=== PATIENT | female | born 1990 | race Caucasian/White ===

== ENCOUNTER 2019-02-10 20:02 | Emergency (ER) | payer BC, OTHER ==
[~2019-02-10] VITALS: Ht 170.2 cm; Wt 61.4 kg
[2019-02-10 20:24] VITALS: BP 120/78
[2019-02-10 20:45] LABS: BASOPHILS % (AUTO) 0.6 % (0-1); EOSINOPHILS # (AUTO) 0.4 X10'3 (0-0.9); EOSINOPHILS % (AUTO) 5.5 % (0-6); HEMOGLOBIN 11.5 g/dl (12.0-16.0); LYMPHOCYTES # (AUTO) 1.6 X10'3 (1.1-4.8); LYMPHOCYTES % (AUTO) 20.4 % (21-51); MEAN CORPUSCULAR HEMOGLOBIN 32.4 PG (27.0-31.0); MEAN CORPUSCULAR VOLUME 92.7 FL (78-98); MEAN PLATELET VOLUME 7.6 FL (7.4-10.4); MONOCYTES # (AUTO) 0.5 X10'3 (0-0.9); NEUTROPHILS # (AUTO) 5.2 X10'3 (1.8-7.7); NEUTROPHILS % (AUTO) 67.5 % (42-75); PLATELET COUNT 218 X10'3 (140-440); RED BLOOD COUNT 3.56 X10'6 (4.20-5.60); WHITE BLOOD COUNT 7.7 X10'3 (4.5-11.0)
[2019-02-10 20:54] LABS: HCG SERUM QL POSITIVE
[2019-02-10 20:56] LABS: ALANINE AMINOTRANSFERASE 27 U/L (12-78); ALBUMIN 4.1 G/DL (3.4-5.0); ALBUMIN/GLOBULIN RATIO 1.5 (1.1-1.5); ALKALINE PHOSPHATASE 32 IU/L (46-116); ANION GAP 7 (8-16); ASPARTATE AMINO TRANSFERASE 10 U/L (10-37); BILIRUBIN,TOTAL 0.2 MG/DL (0.1-1.0); BLOOD UREA NITROGEN 8 MG/DL (7-18); BUN/CREATININE RATIO 12.9 (6.6-38.0); CALCIUM 8.8 MG/DL (8.5-10.1); CHLORIDE 106 MMOL/L (99-107); CREATININE 0.62 MG/DL (0.40-0.90); GLUCOSE 110 MG/DL (70-104); POTASSIUM 3.2 MMOL/L (3.5-5.1); SODIUM 140 MMOL/L (135-145); TOTAL CARBON DIOXIDE 26.6 MMOL/L (24-32); TOTAL PROTEIN 6.9 G/DL (6.4-8.2); eGFR > 90 ML/MIN
[2019-02-10 21:22] LABS: BETA HCG,QUANTITATIVE 2131 mIU/ml
[2019-02-10 22:44] LABS: CLARITY,URINE CLEAR (Clear); COLOR,URINE YELLOW (Yellow); GLUCOSE, URINE NEGATIVE (Neg); KETONES,URINE NEGATIVE (Neg); LEUKOCYTE ESTERASE ,URINE NEGATIVE (Neg); NITRITES, URINE NEGATIVE (Neg); OCCULT BLOOD,URINE MODERATE (Neg); PH,URINE 6.5 (4.8-8.0); PROTEIN,URINE NEGATIVE (Neg); UROBILINOGEN,URINE 0.2 E.U/dL (0.2-1.0)
[2019-02-10 22:49] LABS: BACTERIA,URINE NONE SEEN /HPF (Neg); SQUAMOUS EPITHELIAL CELL,UR FEW /LPF (FEW); UA COLLECTION TYPE CLN CATCH MIDSTREAM; WBC,URINE NONE SEEN /HPF (0-4)
== END 2019-02-10 23:01 | disposition home or self-care (01) ==
LOC: ER 20:02
DX: O03.4 Incomplete spontaneous abortion without complication (principal); R79.1 Abnormal coagulation profile; Z3A.11 11 weeks gestation of pregnancy
CPT/HCPCS: 36415; 80053; 81001; 84145; 84702; 84703; 85025; 85610; 99283

== ENCOUNTER 2025-05-18 14:15 | Emergency (ER) | payer BC ==
[~2025-05-18] VITALS: Ht 170.2 cm; Wt 64.7 kg
[2025-05-18 14:16] VITALS: TEMP 98.7
--- NOTE | 2025-05-18 14:33 | Physician Documentation ---
History of Present Illness ~ Chief Complaint: Flu Symptoms Stated Complaint: NOT FEELING WELL Time Seen by MD: 14:53 Primary Medical Doctor: UNKNOWN HPI Very pleasant 34-year-old female that presents to the emergency department for evaluation of persistent dizziness and vertigo times several days. Patient reports that she has recently been diagnosed with bilateral ear infections and was started on antibiotics for that. Patient reports that she has been on the antibiotics for approximately 4 days but the dizziness and vertigo have persisted. She has also had associated nausea and vomiting with the symptoms. Patient denies taking any medications that have been helpful. Patient denies fever chills but again does report nausea vomiting diarrhea dizziness and vertigo at this time. Patient denies chest pain or headache. Medication Reconciliation Allergies: Coded Allergies: No Known Allergies (Unverified , 05/18/25) Past Medical History Past Medical History: No Pertinent History Past Surgical History: no surgical history Alcohol Use: None Drug Use: none Lives with: Spouse Lives In: Home, Other Review of Systems ROS As stated above in the HPI, otherwise all systems are reviewed and negative. Physical Exam Vital Signs: Temperature: 98.7, Source: Temporal, Heart Rate: 98, Respiratory Rate: 16, BP: 137/85, Pulse Oximetry: 100, Weight: 64.700 Oxygen Flow Rate: 0 General Appearance VITALS: Reviewed and as above. GENERAL: Alert, no apparent distress. HEENT: Normocephalic, atraumatic, PERRL, EOMI, dry mucosa, no erythema RESPIRATORY: Lungs clear, normal breath sounds, no respiratory distress. CHEST: No accessory muscle use, no retractions CV: Regular rate, rhythm, no edema, no murmur, No: JVD GI: Soft, non-tender, bowels sounds present, no rebound, guarding, or rigidity BACK: No CVA tenderness, or swelling MUSCULOSKELETAL No deformities, no edema SKIN: Warm and dry, no rash NEURO: Oriented x4, No motor or sensory deficit PSYCH: Normal mood and affect, no agitation Progress Results/Orders Results/Orders Orders - CARI GREEN * Iv Access / Saline Lock * (05/18/25 14:53) Completed Orders - CARI GREEN Cbc/Diff (05/18/25 14:53) CMP (05/18/25 14:53) Urinalysis, Cult If Indicated (05/18/25 14:53) Hcg, Ur Ql (05/18/25 14:53) Ondansetron Inj. (Zofran 4mg/2ml Vial) (05/18/25 14:55) Meclizine Tablets (Antivert Tablet) (05/18/25 16:35) Medications Received in ER Medications (Trade) Dose Ordered Sig/Priya Route PRN Reason Start Time Stop Time Status Last Admin Dose Admin (Zofran 4mg/2ml vial) 4 mg ONCE ONCE IV 05/18/25 14:55 05/18/25 14:56 DC 05/18/25 14:59 4 MG Vital Signs 05/18/25 14:16 Temp 98.7 Pulse 98 Resp 16 B/P (MAP) 137/85 Pulse Ox 100 O2 Flow Rate 0 Laboratory Tests Test 05/18/25 14:39 05/18/25 16:00 White Blood Count 9.8 Red Blood Count 4.69 Hemoglobin 14.1 Hematocrit 41.9 Mean Corpuscular Volume 89.3 Mean Corpuscular Hemoglobin 30.1 Mean Corpuscular Hemoglobin Concent 33.7 Red Cell Distribution Width 12.5 Platelet Count 304 Mean Platelet Volume 8.3 Neutrophils (%) (Auto) 81.2 H Lymphocytes (%) (Auto) 15.2 L Monocytes (%) (Auto) 2.5 Eosinophils (%) (Auto) 0.7 Basophils (%) (Auto) 0.4 Neutrophils # (Auto) 8.0 H Lymphocytes # (Auto) 1.5 Monocytes # (Auto) 0.2 Eosinophils # (Auto) 0.1 Basophils # (Auto) 0.0 CBC Comment Sodium Level 144 Potassium Level 3.4 L Chloride Level 111 H Carbon Dioxide Level 22.9 L Anion Gap 10 Blood Urea Nitrogen 11 Creatinine 0.85 Estimated GFR/1.73 m2 76 BUN/Creatinine Ratio 12.9 Glucose Level 100 Calcium Level 8.9 Total Bilirubin 0.5 Aspartate Amino Transf (AST/SGOT) 12 Alanine Aminotransferase (ALT/SGPT) 13 Alkaline Phosphatase 55 Total Protein 7.4 Albumin 4.5 Globulin 2.9 Albumin/Globulin Ratio 1.6 H Chemistry Comments Urine Specimen Description Non-specified Urine Color Yellow Urine Clarity Clear Urine pH 6.0 Urine Specific Stanton 1.025 Urine Protein Negative Urine Glucose (UA) Negative Urine Ketones Trace H Urine Occult Blood Negative Urine Nitrite Negative Urine Bilirubin Negative Urine Urobilinogen 0.2 Urine Leukocyte Esterase Negative Urine Culture Indicated Not ind Volume Urine Centrifuged 10 ml Urine HCG, Qualitative Negative Urine Comment Medical Decision Making Additional information obtaine: other Findings Chief Complaint: Persistent dizziness and vertigo History of Present Illness: 34-year-old female presenting to the emergency department with several days of persistent dizziness and vertigo. Patient was recently diagnosed with bilateral ear infections and started on antibiotics four days ago, but vestibular symptoms have persisted despite treatment. Associated symptoms include nausea and vomiting. Patient denies fever, chills, chest pain, or headache. Reports no relief with any medications tried at home. Differential Diagnosis: The differential diagnosis for this patient's presentation was considered using the timing and triggers approach to acute dizziness. Given the persistent nature of symptoms lasting several days, this presentation is most consistent with an acute vestibular syndrome (AVS), defined as continuous dizziness or vertigo lasting longer than 24 hours. Primary considerations included: Vestibular neuritis/labyrinthitis - Most likely given recent bilateral ear infections and persistent symptoms Peripheral vestibular dysfunction secondary to ongoing otologic infection Central causes (posterior circulation stroke) - Less likely given patient age, absence of vascular risk factors documented, and clinical presentation Medication side effects - Considered but less likely Vestibular migraine - Possible but no reported migrainous features Approximately half of emergency department patients with dizziness have general medical conditions, while 33% have peripheral vestibular causes and only 3-6% have serious central causes. In patients with AVS specifically, vestibular neuritis is the most common peripheral cause, while 10-25% are due to posterior circulation stroke. Emergency Department Course: Laboratory diagnostics were unremarkable, which helped exclude metabolic, infectious, and hematologic causes of dizziness. The patient received supportive care including intravenous fluids for dehydration secondary to nausea and vomiting, ondansetron (Zofran) for nausea, and one dose of meclizine with some symptomatic improvement. Physical examination findings were consistent with a peripheral vestibular etiology rather than central pathology. The absence of fever, headache, focal neurological deficits, and the patient's clinical improvement with vestibular suppressant medication support a benign peripheral cause. Assessment and Plan: This patient's presentation is most consistent with vestibular neuritis or labyrinthitis in the setting of bilateral ear infections. Vestibular neuritis is caused by inflammation of the vestibular component of the eighth cranial nerve, thought to be similar to Romero's palsy, and is typically a viral or postviral condition. The persistence of symptoms despite antibiotic treatment for ear infections suggests ongoing vestibular inflammation. Disposition: Discharge home with close outpatient follow-up Discharge Medications: Continue current antibiotics as prescribed for bilateral ear infections Meclizine 25 mg as needed for vertigo (short course) Discharge Instructions: Follow up with primary care provider within 3-5 days for reassessment Consider referral to otolaryngology or neurology if symptoms persist or worsen Vestibular rehabilitation therapy may be beneficial if symptoms do not resolve Return Precautions: Return to the emergency department immediately for: Worsening or severe headache New neurological symptoms (weakness, numbness, vision changes, difficulty speaking) Inability to walk or severe imbalance Persistent vomiting with inability to tolerate oral intake Fever Any other concerning symptoms Medical Decision Making Complexity: Moderate complexity. Multiple diagnostic possibilities were considered in a patient with persistent vestibular symptoms. The evaluation required distinguishing between peripheral and central causes of dizziness, which has significant implications for management and prognosis. The decision to discharge was based on clinical presentation consistent with peripheral vestibular pathology, absence of concerning features for central etiology, improvement with symptomatic treatment, and ability to arrange appropriate outpatient follow-up. Differential Dx:Considerations: Include: CVA, Dehydration, Drug toxicity, Electrolyte imbalance, Influenza, Meningitis, Mycardial infarction, Pneumonia, Pneumonitis, Pulmonary embolus, Pyelonephritis, Respiratory failure, Sepsis, UTI, Viral Syndrome, Other Departure Disposition: 01 HOME / SELF CARE / HOMELESS Impression: Primary Impression: Vestibular neuritis Condition: Stable Discharge Instructions: Labyrinthitis, [id number] Additional Instructions: Your Diagnosis You came to the emergency department with dizziness and vertigo (a spinning sensation) that has lasted several days. You were recently diagnosed with ear infections in both ears and started on antibiotics. Your symptoms are likely related to inflammation in the inner ear from your ear infections, which affects your balance system. Your lab tests came back normal, and your examination suggests this is related to your ear infections rather than a more serious problem with your brain or heart. What You Need to Do at Home Continue your antibiotics exactly as prescribed - even though your dizziness hasn't gone away yet. The antibiotics are treating the infection in your ears, which takes time to fully resolve. Take meclizine for your vertigo symptoms - You received one dose in the emergency department which helped your symptoms. You have been prescribed a short course of meclizine to take at home. Only take this medication for 3-5 days maximum. Taking it longer can actually slow down your body's natural ability to adjust to the vertigo and may cause side effects. Important safety information about meclizine: This medication can make you drowsy - do not drive or operate machinery while taking it Avoid drinking alcohol while taking this medication If you have asthma, glaucoma, or an enlarged prostate, use this medication with caution Rest and take it easy - Avoid sudden head movements when possible. Get up slowly from lying or sitting positions. Stay hydrated - Drink plenty of fluids, especially if you've been vomiting. Follow-Up Care Schedule an appointment with your primary care doctor within 3-5 days. Your doctor may refer you to an ear, nose, and throat specialist (ENT) or recommend vestibular rehabilitation therapy (special exercises) if your symptoms don't improve. Vestibular rehabilitation therapy has been shown to help many patients recover from vertigo, especially when symptoms persist. When to Return to the Emergency Department Immediately Come back to the emergency department right away if you experience any of these symptoms: Severe or worsening headache - especially if it's the worst headache of your life New weakness, numbness, or tingling in your face, arms, or legs Trouble speaking or slurred speech Vision changes - such as double vision, vision loss, or difficulty seeing Difficulty walking or severe imbalance - worse than what you experienced today Persistent vomiting - if you cannot keep down liquids Fever - temperature over 100.4F (38C) Chest pain or shortness of breath Confusion or difficulty staying awake These symptoms could indicate a more serious condition that needs immediate evaluation. What to Expect Most people with vertigo from ear infections start to feel better within a few days to a week. However, some mild dizziness may persist for several weeks as your balance system adjusts. This is normal and should gradually improve over time. If your symptoms are not improving after finishing your antibiotics, or if they get worse, contact your primary care doctor right away. Questions? If you have any questions or concerns about your condition or these instructions, please contact your primary care provider or call our emergency department. Referrals: NO PRIMARY CARE PROVIDER (PCP) Prescriptions Meclizine Hcl (MECLIZINE HCL) 12.5 Mg Tablet 1 TAB PO Q8H for dizziness for 10 Days, #30 TAB 0 Refills Prov: CARI GREEN 05/18/25 Education Educated: Patient Educated regarding: diagnosis, treatment, need for follow up Signature Scribe Signature: A Attestation: Scribed for Cari Green by WONG Saunders . 05/18/25 16:59 CARI GREEN May 18, 2025 14:33
[2025-05-18] MEDS: ondansetron/PF 4mg/2ml inj IV ONE (14:59)
[2025-05-18 15:07] LABS: MEAN PLATELET VOLUME 8.3 FL (7.4-10.4); RED CELL DISTRIBUTION WIDTH 12.5 % (11.5-14.5)
[2025-05-18 15:19] LABS: CREATININE 0.85 MG/DL (0.40-0.90); TOTAL CARBON DIOXIDE 22.9 MMOL/L (24-32); eCRCL 89 ML/MIN; eGFR 76 ML/MIN
[2025-05-18 16:27] LABS: LEUKOCYTE ESTERASE ,URINE NEGATIVE (Neg); NITRITES, URINE NEGATIVE (Neg); OCCULT BLOOD,URINE NEGATIVE (Neg)
[2025-05-18 16:28] LABS: UA COLLECTION TYPE NON-SPECIFIED; URINE HCG NEGATIVE (NEG)
[2025-05-18] MEDS ORDERED: MECL-231 PO (16:52)
[2025-05-18 17:42] VITALS: BP 110/65; PULSE 56; RESP 18; O2SAT 95
== END 2025-05-18 17:35 | disposition home or self-care (01) ==
LOC: ER 14:16
DX: H81.23 Vestibular neuronitis, bilateral (principal)
CPT/HCPCS: 36415; 80053; 81003; 81025; 85025; 96374; 99283; J2405; J7030; J8597